=== PATIENT | female | born 1940 | race Caucasian/White ===

== ENCOUNTER → 2016-12-10 | Outpatient (CLI) | payer OTHER, MEDICARE ==
[~2016-12-10] MED LIST: DITROPAN; NAPROSYN500 MG PO; NORCO 5-325 TA1 EACH PO; SYNTHROID25 MCG PO
== END ==
LOC: ULTRA 07:41 → RAD 07:41
DX: Z12.31 Encounter for screening mammogram for malignant neoplasm of breast (principal); N28.9 Disorder of kidney and ureter, unspecified; M19.90 Unspecified osteoarthritis, unspecified site; M85.80 Other specified disorders of bone density and structure, unspecified site; Z86.19 Personal history of other infectious and parasitic diseases; Z85.528 Personal history of other malignant neoplasm of kidney

== ENCOUNTER → 2016-12-22 | Outpatient (CLI) | payer OTHER, MEDICARE | LOC: MRI 09:26 | DX: N28.89 Other specified disorders of kidney and ureter (principal) ==

== ENCOUNTER → 2017-12-21 | Outpatient (CLI) | payer OTHER, MEDICARE | LOC: HYPER 09:56 | DX: S80.12XA Contusion of left lower leg, initial encounter (principal); S80.11XA Contusion of right lower leg, initial encounter; I48.2 Chronic atrial fibrillation; M19.90 Unspecified osteoarthritis, unspecified site; M81.0 Age-related osteoporosis without current pathological fracture; Z79.01 Long term (current) use of anticoagulants; Z85.528 Personal history of other malignant neoplasm of kidney; Z90.710 Acquired absence of both cervix and uterus; Z87.891 Personal history of nicotine dependence; X58.XXXA Exposure to other specified factors, initial encounter; Y93.89 Activity, other specified; Y92.89 Other specified places as the place of occurrence of the external cause; Y99.8 Other external cause status ==

== ENCOUNTER → 2017-12-22 | Outpatient (CLI) | payer OTHER, MEDICARE | LOC: HYPER 07:10 | DX: S80.12XD Contusion of left lower leg, subsequent encounter (principal); S80.11XD Contusion of right lower leg, subsequent encounter; I48.2 Chronic atrial fibrillation; M19.90 Unspecified osteoarthritis, unspecified site; M81.0 Age-related osteoporosis without current pathological fracture; Z85.528 Personal history of other malignant neoplasm of kidney; Z79.01 Long term (current) use of anticoagulants; Z85.828 Personal history of other malignant neoplasm of skin; Z90.710 Acquired absence of both cervix and uterus; Z87.891 Personal history of nicotine dependence; X58.XXXD Exposure to other specified factors, subsequent encounter ==

== ENCOUNTER → 2017-12-24 | Outpatient (CLI) | payer OTHER, MEDICARE | LOC: HYPER 12:14 | DX: S80.11XD Contusion of right lower leg, subsequent encounter (principal); S80.12XD Contusion of left lower leg, subsequent encounter; I48.2 Chronic atrial fibrillation; M19.90 Unspecified osteoarthritis, unspecified site; M81.0 Age-related osteoporosis without current pathological fracture; Z87.891 Personal history of nicotine dependence; Z90.710 Acquired absence of both cervix and uterus; Z79.01 Long term (current) use of anticoagulants ==

== ENCOUNTER → 2018-01-05 | Outpatient (CLI) | payer OTHER, MEDICARE | LOC: HYPER 06:54 | DX: S81.812D Laceration without foreign body, left lower leg, subsequent encounter (principal); S81.811D Laceration without foreign body, right lower leg, subsequent encounter; I48.2 Chronic atrial fibrillation; M19.90 Unspecified osteoarthritis, unspecified site; M81.0 Age-related osteoporosis without current pathological fracture; Z85.53 Personal history of malignant neoplasm of renal pelvis; Z90.710 Acquired absence of both cervix and uterus; Z87.891 Personal history of nicotine dependence; Z79.01 Long term (current) use of anticoagulants; Z85.3 Personal history of malignant neoplasm of breast; X58.XXXD Exposure to other specified factors, subsequent encounter ==

== ENCOUNTER → 2018-01-19 | Outpatient (CLI) | payer OTHER, MEDICARE | LOC: HYPER 06:58 | DX: S81.832D Puncture wound without foreign body, left lower leg, subsequent encounter (principal); S81.831D Puncture wound without foreign body, right lower leg, subsequent encounter; I48.2 Chronic atrial fibrillation; M81.0 Age-related osteoporosis without current pathological fracture; M19.90 Unspecified osteoarthritis, unspecified site; Z85.53 Personal history of malignant neoplasm of renal pelvis; Z79.01 Long term (current) use of anticoagulants; Z90.710 Acquired absence of both cervix and uterus; Z87.891 Personal history of nicotine dependence; X58.XXXD Exposure to other specified factors, subsequent encounter ==

== ENCOUNTER → 2018-03-04 | Outpatient (CLI) | payer OTHER, MEDICARE | LOC: HYPER 06:57 | DX: S80.12XD Contusion of left lower leg, subsequent encounter (principal); I48.2 Chronic atrial fibrillation; B18.2 Chronic viral hepatitis C; M19.90 Unspecified osteoarthritis, unspecified site; M81.0 Age-related osteoporosis without current pathological fracture; Z85.53 Personal history of malignant neoplasm of renal pelvis; Z79.01 Long term (current) use of anticoagulants; Z85.828 Personal history of other malignant neoplasm of skin; Z90.710 Acquired absence of both cervix and uterus; Z87.891 Personal history of nicotine dependence; X58.XXXD Exposure to other specified factors, subsequent encounter ==

== ENCOUNTER 2018-04-14 17:58 | Inpatient (IN) | payer OTHER, MEDICARE ==
[~2018-04-14] VITALS: Ht 167.6 cm; Wt 70.6 kg
--- NOTE | ~2018-04-14 | HC ---
[facility] [place] [address] CONSULTATION Name: NILESH FONTANEZJANIE Brandon Room #: 429-P [facility] IN .R.#: [id number] Admission: 04/14/18 Attend Phys: Simone Arvizu MD Discharge: Date of : 44 Report #: [id number] THIS REPORT FOR: //name// CC: Roby Arvizu DATE OF SERVICE: 04/15/2018 INFECTIOUS DISEASE CONSULTATION REASON FOR CONSULTATION: I was asked to evaluate concerning right first toe paronychia with extensive soft tissue infection. HISTORY OF PRESENT ILLNESS: A 78-year-old with history of atrial fibrillation, on anticoagulation. She had undergone debridement of her right first toe due to recurrent ingrown toenail. Following this, she developed increased swelling and placed on cephalexin without improvement. Had local debridement done in the outpatient clinic over a week ago, placed on Levaquin with no improvement. Now hospitalized for further therapy. Has significant amount of pain in the toe. Temperature up to 100 degrees. No chills or sweats. No pain into the foot. No erythema into the foot or lower leg. She is a nonsmoker. No diabetes history. No claudication history. ALLERGIES: PARESTHESIAS WITH SULFA. MEDICATIONS: As noted on her MAR including Eliquis, aspirin, Lipitor, Tambocor, Synthroid, Lanoxin, multivitamin, calcium, vitamin C, Ultram, Synthroid. PAST MEDICAL HISTORY: Hypothyroidism, left breast cancer with lumpectomy, urinary stress incontinence, hepatitis C, hysterectomy, rectocele, bladder repair. FAMILY HISTORY: Noncontributory. SOCIAL HISTORY: Remote history of tobacco use. No significant alcohol intake. REVIEW OF SYSTEMS: GENERAL: Negative. HEENT: Negative. CARDIOVASCULAR: As above. PULMONARY: Negative. GASTROINTESTINAL: Negative. GENITOURINARY: Negative. SKIN: Negative other than the above. EXTREMITIES: As above. NEUROLOGIC: Negative. [facility] [address] [place] [address] CONSULTATION Name: DANIA FONTANEZ Room #: 429-P [facility] IN [facility]#: [id number] Admission: 04/14/18 Attend Phys: Simone Arvizu MD Discharge: Date of : 42 Report #: [id number] PSYCHIATRIC: Negative. LYMPHATIC: Negative. HEMATOLOGIC: As above. PHYSICAL EXAMINATION: VITAL SIGNS: Afebrile and hemodynamically stable. GENERAL: She is alert and cooperative and pleasant, in no acute distress. EYES: No conjunctival injection or scleral icterus. Mouth without mucositis or lesion. She does have dentures. NECK: Supple with no thyromegaly or mass. No palpable adenopathy. SKIN: Unremarkable other than what will be described on her extremity examination. LUNGS: Clear. HEART: Regular, without murmur. ABDOMEN: Soft and nontender. EXTREMITIES: Right great toe 2+ swelling with ecchymosis and eschar over the dorsum of her toe. Nail was swollen. Exquisitely tender. She did have capillary refill present. Pulses in the foot were normal. Sensation in the foot was normal. Range of motion was normal. NEUROLOGIC: Otherwise nonfocal with normal cranial nerves, deep tendon reflexes, and strength. PSYCHIATRIC: Mood normal. LABORATORY STUDIES: Blood cultures are negative to date. X-ray of the foot shows no evidence of osteomyelitis. Sodium 133, potassium 3.9, bicarbonate 27, creatinine 0.9. Liver function test normal. Hemoglobin 13.4, white count 6.0, platelet count 186,000. I do not have any culture results yet available. IMPRESSION: A 78-year-old with soft tissue infection and paronychia, right great toe. The patient is on Eliquis for anticoagulation. No evidence of peripheral vascular disease evident on examination. RECOMMENDATION: Would have surgical evaluation. Hold Eliquis. Timing of surgery will depend upon her anticoagulation. We will continue IV antibiotic therapy for now. Adjust pending cultures. <ELECTRONICALLY SIGNED> By: Byron Pruett MD 04/19/18 1345 1005 0000 Byron Pruett MD /nt
--- NOTE | ~2018-04-14 | O ---
[facility] [place] [address] OPERATIVE REPORT Name: ESTEEDANIA Brandon Room #: 429-P [facility] IN ..#: [id number] Admission: 04/14/18 Attend Phys: Simone Arvizu MD Discharge: 04/20/18 Date of : 42 Report #: [id number] THIS REPORT FOR: //name// CC: Roby Arvizu DATE OF SERVICE: 04/16/2018 PREOPERATIVE DIAGNOSIS: Right foot great toe osteomyelitis. POSTOPERATIVE DIAGNOSIS: Right foot great toe osteomyelitis. PROCEDURE: Right foot great toe amputation. SURGEON: Virgilio Light M.D. ANESTHESIA: General. ESTIMATED BLOOD LOSS: 10 mL. DRAINS: No drains. TOURNIQUET TIME: 20 minutes. DESCRIPTION OF PROCEDURE: The patient was brought to the operating room, where her right lower extremity was prepped and draped in a sterile manner. The extremity was elevated, exsanguinated and tourniquet placed to 300 mmHg. A fishmouth-type incision about the great toe distal phalanx was then made. This was dissected down through the soft tissue sharply to the bone, which was then sharply extracted from the skin flap and then completing the amputation, there was abundant purulent and bloody material, which was then irrigated copiously away from the wound. Once the wound was irrigated copiously, it was closed with 2-0 nylon suture in a simple stitch manner. Once complete, the wound was dressed with Xeroform, 4 x 4s, and a sterile soft compressive dressing was placed. Tourniquet was let down approximately 20 minutes. Toes were pink and warm, with good capillary refill. There were no complications from the procedure. The patient tolerated the procedure well and went to the recovery room without incident. <ELECTRONICALLY SIGNED> By: Virgilio Light MD 04/27/18 1235 1241 1259 Virgilio Light MD /nt
--- NOTE | ~2018-04-14 | HC ---
[facility] [place] [address] CONSULTATION Name: FONTANEZDANIA Room #: 429-P [facility] IN ..#: [id number] Admission: 04/14/18 Attend Phys: Simone Arvizu MD Discharge: Date of : 42 Report #: [id number] THIS REPORT FOR: //name// CC: Roby Arvizu DATE OF SERVICE: 04/15/2018 CHIEF COMPLAINT: Infected right great toe. HISTORY OF PRESENT ILLNESS: This is a 78-year-old female patient with a history of hypothyroidism as well as atrial fibrillation status post ablation who remains on Eliquis. She has had outpatient care of her right great toenail with resection about a month ago. She, however, developed infection and abscess, had an incision and drainage in the office, had some temporary improvement on oral Levaquin and then has had increasing swelling and drainage and pain. Was seen in the Wound Clinic yesterday and it was felt that inpatient hospitalization was warranted for orthopedic consultation and incision, drainage and debridement in an operative setting as well as intravenous antibiotic therapy. The patient reports that she is feeling better since admission. She is anxious to get on with the orthopedic procedure. PAST MEDICAL HISTORY: Positive for hypothyroidism, history of breast cancer on the left side with previous lumpectomy, has a history of stress incontinence, hepatitis C. PAST SURGICAL HISTORY: Hysterectomy, rectocele and previous bladder repair. SOCIAL HISTORY: This patient is a previous smoker, having smoked a half pack per day for 10 years. She quit greater than 1 year ago. No alcohol use. FAMILY HISTORY: Noncontributory. REVIEW OF SYSTEMS: CONSTITUTIONAL: The patient denies fever, chills, weight loss. NEUROLOGICAL: The patient denies focal weakness, numbness or tingling. EYES: The patient denies any visual changes, redness or drainage. ENT: The patient denies earache, nasal drainage or sore throat. CARDIOVASCULAR: The patient denies chest pain, palpitations or diaphoresis. PULMONARY: The patient denies cough or shortness of breath. GASTROINTESTINAL: The patient denies nausea, vomiting or diarrhea. ORTHOPEDIC: The patient complains of pain, swelling, drainage and some bleeding from her right great toe. MEDICATIONS: Include Eliquis, aspirin, Lipitor, Tambocor, Lanoxin, Centrum Silver, vitamin C, Ultram, MiraLax, Synthroid and Ditropan. [address] [address] CONSULTATION Name: NILESH FONTANEZJANIE Brandon Room #: 429-P [facility] IN [facility]#: [id number] Admission: 04/14/18 Attend Phys: Simone Arvizu MD Discharge: Date of : 42 Report #: [id number] PHYSICAL EXAMINATION: VITAL SIGNS: At this time include temperature 36.7, pulse 59, respiration 16, blood pressure 132/69. GENERAL: This is a well-developed, well-nourished female patient who appears to be in no distress. HEENT: Head is normocephalic. Nose and throat are clear. NECK: Supple. LUNGS: Clear. HEART: Regular rhythm without murmur. ABDOMEN: Soft. Bowel sounds present. EXTREMITIES: Demonstrate palpable distal pulses. She has significant eschar and what appears to be some dried hematoma involving the dorsal aspect of the right great toe nailbed. There is significant swelling and erythema as well suggestive of underlying abscess. NEUROLOGIC: The patient is alert, oriented and appropriate. X-ray evaluation of the right foot demonstrates soft tissue swelling without acute fracture or dislocation and nothing to suggest osteomyelitis. LABORATORY DATA: White blood cell count 6000, hemoglobin 13.4, hematocrit 38.9, sodium 133, potassium 3.9, chloride 99, CO2 27, BUN 17, creatinine 0.9, glucose of 105, albumin 3.9, total protein is 8.0. CLINICAL IMPRESSION: 1. Cellulitis/abscess of the right great toe with possible retained hematoma. 2. Atrial fibrillation with anticoagulation. 3. Hypertension. 4. Hypothyroidism. RECOMMENDATIONS: At this point in time, the patient has been seen by Infectious Disease. She has been started on intravenous antibiotic therapy pending culture results. Orthopedic Surgery has been consulted and plans for operative incision and debridement for tomorrow have been set. We will recommend simple Betadine "paint" to the affected area for now. Additional decision making for wound care will be forthcoming following her operative procedure. I appreciate being asked to see her in consultation. <ELECTRONICALLY SIGNED> By: Femi Regalado MD 04/16/18 0738 1314 0203 Femi Regalado MD /nt
--- NOTE | ~2018-04-14 | PATH ---
[facility] [address] [place] [address] PATHOLOGY RPT PROCEDURE Name: NILESH DELUNAJANIE Brandon Room #: 429-P [facility] IN M.R.#: [id number] Admission: 04/14/18 Date of : 44 Discharge: 04/20/18 Report #: [id number] Path Case #: [id number] [facility] Accession Number: [id number] . 01 Material submitted: . RIGHT GREAT TOE . 01 Clinician provided ICD-10: L03.031 . 01 Clinical history: . Cellulitis. . 02 Diagnosis: Toe, right great toe, amputation: - Marked acute inflammation associated with ulceration. - Underlying bone showing mild chronic inflammation along with remodeling. - Skin margin unremarkable and viable. . (IUV:access coordinator; 04/19/2018) MBR/04/20/2018 . 02 Electronically signed: . Hailee Perez MD, Pathologist NPI- [id number] . 01 Gross description: . Received in formalin labeled "Dania Deluna, right great toe" is a toe amputation specimen which measures 3.6 x 2.8 x 2.5 cm. The skin and soft tissue resection margin is smooth and consistent with a surgical margin, and the bone resection margin consists of a convex cartilaginous covered disarticulation. The margin is inked black. The skin surface displays a bergeron-henry thickened toenail measuring 1.8 x 1.6 x 0.2 cm. Adjacent to the nail is a bergeron-red ulcerated lesion measuring 2.3 x 1.7 x 0.1 cm. The lesion measures 0.2 cm to the closest skin margin and 0.7 cm to the bone margin. The specimen is sectioned to reveal the ulcerative lesion has a greatest third dimension of 1.4 cm, and abuts the underlying bone. Also present within the container is a bergeron-white ellipse of skin and underlying soft tissue measuring 3.3 x 1.0 x 0.7 cm. The skin surface is bergeron-white and grossly unremarkable without lesions present. A medical customer service representative cross-section of the toe is submitted in cassettes A1-A2 following decalcification. Sewage Screen Operator sections of separate skin are submitted in cassette A3. ([facility]; 04/18/2018) SYC/SYC . 02 Pathologist provided ICD-10: L97.511 [place] [address] PATHOLOGY RPT PROCEDURE Name: DANIA DELUNA A Room #: 429-P [facility] IN M.R.#: [id number] Admission: 04/14/18 Date of : 44 Discharge: 04/20/18 Report #: [id number] Path Case #: [id number] . 02 CPT . 283587, [id number] Specimen Comment: A courtesy copy of this report has been sent to Specimen Comment: [phone], , . Specimen Comment: Report sent to ,DR SIFUENTES / DR VIZCAINO Specimen Comment: A duplicate report has been generated due to demographic updates. Performed at: [address] [facility], [place] [id number] MD George Vang MD Phone: [phone] Performed at: [address] [facility] [id number] MD Hailee Perez MD Phone: [phone]
[~2018-04-14 17:58] MED LIST changes: -ASPIR 8181 MG PO; -CALCIUM + VITA1 EACH PO; -CENTRUM SILVER1 EAC5 PO; -DAPTOMYCIN500 MG IV; -DIGOXIN125 MCG PO; -ELIQUIS5 MG PO; -FLECAINIDE ACET50 M1 PO; -LIPITOR 20 MG T20 M1 PO; -MIRALAX17 GM PO; -SYNTHROID88 MCG PO; -TRAMADOL 50 MG50 MG PO; -VITAMIN C500 M1 PO; -XANAX 0.25 MG0.25 MG PO
[2018-04-14 18:20] VITALS: BP 181/69
[2018-04-14] MEDS ORDERED: ELIQUIS5 MG PO (19:42)
[2018-04-14] MEDS ORDERED: ASPIR 8181 MG PO (19:44)
[2018-04-14 19:45] VITALS: BP 184/78
[2018-04-14] MEDS ORDERED: FLECAINIDE ACET50 M1 PO (19:45)
[2018-04-14] MEDS ORDERED: LIPITOR 20 MG T20 M1 PO (19:45)
[2018-04-14] MEDS ORDERED: SYNTHROID88 MCG PO (19:46)
[2018-04-14] MEDS ORDERED: DIGOXIN125 MCG PO (19:48)
[2018-04-14] MEDS ORDERED: CENTRUM SILVER1 EAC5 PO (19:49)
[2018-04-14] MEDS ORDERED: CALCIUM + VITA1 EACH PO (19:50)
[2018-04-14] MEDS ORDERED: VITAMIN C500 M1 PO (19:51)
[2018-04-14] MEDS ORDERED: TRAMADOL 50 MG50 MG PO (19:52)
[2018-04-14] MEDS ORDERED: MIRALAX17 GM PO (19:53)
[2018-04-14 19:54] LABS: BASOPHILS 0.7 % (0.0-2.0); EOSINOPHILS 1.5 % (0.0-3.0); HEMATOCRIT 38.9 % (37.0-47.0); HEMOGLOBIN 13.4 gm/dL (12.0-15.0); LYMPHOCYTES 24.1 % (24.0-44.0); MCH 31.9 pg (26.0-34.0); MCHC 34.5 g/dL (28.0-37.0); MCV 92.6 fL (80.0-100.0); MONOCYTES 7.6 % (1.0-8.0); PLATELET COUNT 186 thou/uL (150-400); POLYS 66.1 % (36.0-66.0); RDW 12.8 % (10.5-14.5)
[2018-04-14 20:09] LABS: ALBUMIN 3.9 g/dL (3.4-5.0); CALCIUM 9.7 mg/dL (8.5-10.1); CREATININE 0.9 mg/dL (0.6-1.0); POTASSIUM 3.9 mmol/L (3.5-5.1); TOTAL BILIRUBIN 0.5 mg/dL (<0.1-1.0)
[2018-04-15 04:28] VITALS: BP 112/58
[2018-04-15 08:25] VITALS: BP 156/106
[2018-04-15 08:26] VITALS: BP 132/69
[2018-04-15 12:14] VITALS: BP 132/69
[2018-04-15 14:04] VITALS: BP 144/57
[2018-04-15 19:45] VITALS: BP 151/63
[2018-04-16] VITALS (7 sets, daily range): BP systolic 134–190; BP diastolic 75–100
[2018-04-16 06:22] LABS: ABSOLUTE NEUTROPHILS 3.4 thou/uL (1.4-8.2); BASOPHILS 0.8 % (0.0-2.0); EOSINOPHILS 3.8 % (0.0-3.0); HEMATOCRIT 39.5 % (37.0-47.0); HEMOGLOBIN 13.8 gm/dL (12.0-15.0); LYMPHOCYTES 22.1 % (24.0-44.0); MCH 32.6 pg (26.0-34.0); MCHC 34.9 g/dL (28.0-37.0); MCV 93.5 fL (80.0-100.0); MONOCYTES 10.3 % (1.0-8.0); PLATELET COUNT 179 thou/uL (150-400); RBC 4.23 mil/uL (4.20-5.00); RDW 12.9 % (10.5-14.5); WBC 5.4 thou/uL (4.0-11.0)
[2018-04-16 06:27] LABS: CALCIUM 9.6 mg/dL (8.5-10.1); CREATININE 1.1 mg/dL (0.6-1.0); POTASSIUM 4.7 mmol/L (3.5-5.1)
[2018-04-17 05:30] VITALS: BP 120/73
[2018-04-17 05:56] LABS: ABSOLUTE NEUTROPHILS 6.6 thou/uL (1.4-8.2); BASOPHILS 0.4 % (0.0-2.0); EOSINOPHILS 2.5 % (0.0-3.0); HEMATOCRIT 40.8 % (37.0-47.0); HEMOGLOBIN 14.2 gm/dL (12.0-15.0); MCH 32.1 pg (26.0-34.0); MCHC 34.9 g/dL (28.0-37.0); MCV 92.2 fL (80.0-100.0); MONOCYTES 5.8 % (1.0-8.0); PLATELET COUNT 218 thou/uL (150-400); POLYS 75.3 % (36.0-66.0); RBC 4.42 mil/uL (4.20-5.00); RDW 12.9 % (10.5-14.5); WBC 8.8 thou/uL (4.0-11.0)
[2018-04-17 06:07] LABS: CALCIUM 9.3 mg/dL (8.5-10.1); CREATININE 0.9 mg/dL (0.6-1.0); POTASSIUM 4.3 mmol/L (3.5-5.1)
[2018-04-17 08:09] VITALS: BP 124/71
[2018-04-18 04:33] VITALS: BP 154/79
[2018-04-18 06:27] LABS: ABSOLUTE NEUTROPHILS 4.1 thou/uL (1.4-8.2); BASOPHILS 0.5 % (0.0-2.0); EOSINOPHILS 3.9 % (0.0-3.0); HEMATOCRIT 35.5 % (37.0-47.0); HEMOGLOBIN 12.6 gm/dL (12.0-15.0); LYMPHOCYTES 18.8 % (24.0-44.0); MCH 32.7 pg (26.0-34.0); MCHC 35.5 g/dL (28.0-37.0); MCV 91.9 fL (80.0-100.0); MONOCYTES 9.2 % (1.0-8.0); PLATELET COUNT 171 thou/uL (150-400); POLYS 67.6 % (36.0-66.0); RBC 3.87 mil/uL (4.20-5.00); RDW 12.7 % (10.5-14.5); WBC 6.1 thou/uL (4.0-11.0)
[2018-04-18 06:43] LABS: CALCIUM 8.9 mg/dL (8.5-10.1); POTASSIUM 3.7 mmol/L (3.5-5.1)
[2018-04-18 20:00] VITALS: BP 161/79
[2018-04-19 04:00] VITALS: BP 149/69
[2018-04-19 04:29] LABS: ABSOLUTE NEUTROPHILS 4.3 thou/uL (1.4-8.2); BASOPHILS 0.8 % (0.0-2.0); EOSINOPHILS 4.2 % (0.0-3.0); HEMATOCRIT 35.8 % (37.0-47.0); HEMOGLOBIN 12.3 gm/dL (12.0-15.0); LYMPHOCYTES 23.2 % (24.0-44.0); MCH 31.9 pg (26.0-34.0); MCHC 34.4 g/dL (28.0-37.0); MCV 92.8 fL (80.0-100.0); MONOCYTES 8.8 % (1.0-8.0); PLATELET COUNT 170 thou/uL (150-400); RBC 3.85 mil/uL (4.20-5.00); RDW 12.8 % (10.5-14.5); WBC 6.8 thou/uL (4.0-11.0)
[2018-04-19 04:44] LABS: CALCIUM 9.2 mg/dL (8.5-10.1); POTASSIUM 4.2 mmol/L (3.5-5.1)
[2018-04-19 08:09] VITALS: BP 159/81
[2018-04-19 15:42] VITALS: BP 159/81
[2018-04-19 16:43] VITALS: BP 171/96
[2018-04-19] MEDS ORDERED: NORCO 5-325 TA1 EACH PO (17:17)
[2018-04-19 20:00] VITALS: BP 191/96
[2018-04-19 21:00] VITALS: BP 167/82
[2018-04-20] VITALS (8 sets, daily range): BP systolic 128–177; BP diastolic 72–97
[2018-04-21] MEDS ORDERED: DAPTOMYCIN500 MG IV (11:43)
[2018-04-22] MEDS ORDERED: XANAX 0.25 MG0.25 MG PO (14:55)
== END 2018-04-20 18:15 | disposition home health service (06) | DRG 853 ==
LOC: 4E 17:58
PROVIDERS: Hospitalist; Orthopaedic Surgery Foot and Ankle Surgery
PROC: 0Y6P0Z3 Detachment at Right 1st Toe, Low, Open Approach (ICD-10-PCS; principal; 2018-04-16)
DX: A41.9 Sepsis, unspecified organism (principal); E43 Unspecified severe protein-calorie malnutrition; M86.8X8 Other osteomyelitis, other site; L02.611 Cutaneous abscess of right foot; L03.031 Cellulitis of right toe; E03.9 Hypothyroidism, unspecified; M19.90 Unspecified osteoarthritis, unspecified site; N32.81 Overactive bladder; I48.91 Unspecified atrial fibrillation; I10 Essential (primary) hypertension; Z85.3 Personal history of malignant neoplasm of breast; Z90.710 Acquired absence of both cervix and uterus; Z87.891 Personal history of nicotine dependence; Z88.2 Allergy status to sulfonamides; Z79.01 Long term (current) use of anticoagulants; Z86.19 Personal history of other infectious and parasitic diseases; Z88.8 Allergy status to other drugs, medicaments and biological substances
CPT/HCPCS: 10783; 27000; 50010; 50101; 50386; 50951; 56525; 56527; 57091; 62110; 62900; 70005

== ENCOUNTER → 2018-04-14 | Outpatient (CLI) | payer OTHER, MEDICARE ==
[~2018-04-14] MED LIST changes: +ASPIR 8181 MG PO; +CALCIUM + VITA1 EACH PO; +CENTRUM SILVER1 EAC5 PO; +DAPTOMYCIN500 MG IV; +DIGOXIN125 MCG PO; +ELIQUIS5 MG PO; +FLECAINIDE ACET50 M1 PO; +LIPITOR 20 MG T20 M1 PO; +MIRALAX17 GM PO; +SYNTHROID88 MCG PO; +TRAMADOL 50 MG50 MG PO; +VITAMIN C500 M1 PO; +XANAX 0.25 MG0.25 MG PO
== END ==
LOC: HYPER 09:41
DX: T81.49XA Infection following a procedure, other surgical site, initial encounter (principal); B18.2 Chronic viral hepatitis C; I48.2 Chronic atrial fibrillation; M81.0 Age-related osteoporosis without current pathological fracture; Z85.528 Personal history of other malignant neoplasm of kidney; Z85.3 Personal history of malignant neoplasm of breast; Z85.828 Personal history of other malignant neoplasm of skin; Z87.891 Personal history of nicotine dependence; Z79.01 Long term (current) use of anticoagulants; Z90.710 Acquired absence of both cervix and uterus; Y92.89 Other specified places as the place of occurrence of the external cause; Y83.8 Other surgical procedures as the cause of abnormal reaction of the patient, or of later complication, without mention of misadventure at the time of the procedure

== ENCOUNTER → 2018-04-21 | Outpatient (CLI) | payer OTHER, MEDICARE ==
[~2018-04-21] MED LIST changes: +ASPIR 8181 MG PO; +CALCIUM + VITA1 EACH PO; +CENTRUM SILVER1 EAC5 PO; +DAPTOMYCIN500 MG IV; +DIGOXIN125 MCG PO; +ELIQUIS5 MG PO; +FLECAINIDE ACET50 M1 PO; +LIPITOR 20 MG T20 M1 PO; +MIRALAX17 GM PO; +SYNTHROID88 MCG PO; +TRAMADOL 50 MG50 MG PO; +VITAMIN C500 M1 PO; +XANAX 0.25 MG0.25 MG PO
[2018-04-21 11:23] LABS: HEMATOCRIT 37.4 % (37.0-47.0); HEMOGLOBIN 13.2 gm/dL (12.0-15.0); MCH 32.9 pg (26.0-34.0); MCHC 35.2 g/dL (28.0-37.0); MCV 93.5 fL (80.0-100.0); WBC 8.3 thou/uL (4.0-11.0)
[2018-04-21 11:38] LABS: ALBUMIN 3.6 g/dL (3.4-5.0); CALCIUM 9.2 mg/dL (8.5-10.1); TOTAL BILIRUBIN 0.4 mg/dL (<0.1-1.0); TOTAL PROTEIN 7.7 g/dL (6.4-8.2)
[2018-04-21 11:50] VITALS: BP 132/73
[2018-04-21 12:15] VITALS: BP 132/73
== END ==
LOC: OPONC 06:27
PROVIDERS: Specialist
DX: M86.171 Other acute osteomyelitis, right ankle and foot (principal)
CPT/HCPCS: 95000

== ENCOUNTER → 2018-04-22 | Outpatient (CLI) | payer OTHER, MEDICARE ==
[2018-04-22 10:15] VITALS: BP 127/74
== END ==
LOC: OPONC 07:41
DX: M86.171 Other acute osteomyelitis, right ankle and foot (principal)
CPT/HCPCS: 95000

== ENCOUNTER → 2018-04-23 | Outpatient (CLI) | payer OTHER, MEDICARE ==
[2018-04-23 16:00] VITALS: BP 127/58
== END ==
LOC: OPONC 00:31
DX: M86.171 Other acute osteomyelitis, right ankle and foot (principal)
CPT/HCPCS: 95000

== ENCOUNTER → 2018-04-24 | Outpatient (CLI) | payer OTHER, MEDICARE | LOC: OPONC 00:20 | DX: M86.171 Other acute osteomyelitis, right ankle and foot (principal) | CPT/HCPCS: 95000 ==

== ENCOUNTER → 2018-04-25 | Outpatient (CLI) | payer OTHER, MEDICARE | LOC: OPONC 00:14 | DX: M86.171 Other acute osteomyelitis, right ankle and foot (principal) | CPT/HCPCS: 95000 ==

== ENCOUNTER → 2018-04-26 | Outpatient (CLI) | payer OTHER, MEDICARE ==
[~2018-04-26] MED LIST changes: +KEFLEX500 M1 PO
[2018-04-26 13:25] VITALS: BP 139/70
== END ==
LOC: OPONC 00:20
DX: M86.171 Other acute osteomyelitis, right ankle and foot (principal)
CPT/HCPCS: 95000

== ENCOUNTER → 2018-04-27 | Outpatient (CLI) | payer OTHER, MEDICARE ==
[2018-04-27 15:18] VITALS: BP 139/74
== END ==
LOC: HYPER 00:20
DX: M86.171 Other acute osteomyelitis, right ankle and foot (principal); T81.49XD Infection following a procedure, other surgical site, subsequent encounter; B18.2 Chronic viral hepatitis C; I48.2 Chronic atrial fibrillation; M81.0 Age-related osteoporosis without current pathological fracture; M19.90 Unspecified osteoarthritis, unspecified site; Z85.3 Personal history of malignant neoplasm of breast; Z79.01 Long term (current) use of anticoagulants; Z87.891 Personal history of nicotine dependence; Z90.710 Acquired absence of both cervix and uterus; Z85.528 Personal history of other malignant neoplasm of kidney; Y83.8 Other surgical procedures as the cause of abnormal reaction of the patient, or of later complication, without mention of misadventure at the time of the procedure
CPT/HCPCS: 95000

== ENCOUNTER → 2018-04-28 | Outpatient (CLI) | payer OTHER, MEDICARE ==
[~2018-04-28] MED LIST changes: -KEFLEX500 M1 PO
[2018-04-28 11:45] VITALS: BP 125/69
[2018-04-28 12:03] LABS: HEMATOCRIT 35.6 % (37.0-47.0); HEMOGLOBIN 12.4 gm/dL (12.0-15.0); MCH 32.4 pg (26.0-34.0); MCHC 34.8 g/dL (28.0-37.0); MCV 93.3 fL (80.0-100.0); RBC 3.82 mil/uL (4.20-5.00); WBC 6.5 thou/uL (4.0-11.0)
[2018-04-28 12:35] LABS: ALBUMIN 3.5 g/dL (3.4-5.0); CALCIUM 9.1 mg/dL (8.5-10.1); CREATININE 0.9 mg/dL (0.6-1.0); POTASSIUM 3.9 mmol/L (3.5-5.1); TOTAL BILIRUBIN 0.4 mg/dL (<0.1-1.0); TOTAL PROTEIN 7.7 g/dL (6.4-8.2)
== END ==
LOC: OPONC 00:54
PROVIDERS: Specialist
DX: M86.171 Other acute osteomyelitis, right ankle and foot (principal)
CPT/HCPCS: 95000

== ENCOUNTER → 2018-04-29 | Outpatient (CLI) | payer OTHER, MEDICARE ==
[2018-04-29 11:08] VITALS: BP 134/77
== END ==
LOC: OPONC 06:21
DX: M86.171 Other acute osteomyelitis, right ankle and foot (principal)
CPT/HCPCS: 95000

== ENCOUNTER → 2018-04-30 | Outpatient (CLI) | payer OTHER, MEDICARE ==
[2018-04-30 11:44] VITALS: BP 110/53
== END ==
LOC: OPONC 00:14
DX: M86.171 Other acute osteomyelitis, right ankle and foot (principal)
CPT/HCPCS: 95000

== ENCOUNTER → 2018-05-01 | Outpatient (CLI) | payer OTHER, MEDICARE | LOC: OPONC 09:00 | DX: M86.171 Other acute osteomyelitis, right ankle and foot (principal) | CPT/HCPCS: 95000 ==

== ENCOUNTER → 2018-05-02 | Outpatient (CLI) | payer OTHER, MEDICARE | LOC: OPONC 08:08 | DX: M86.171 Other acute osteomyelitis, right ankle and foot (principal) | CPT/HCPCS: 95000 ==

== ENCOUNTER → 2018-05-03 | Outpatient (CLI) | payer OTHER, MEDICARE ==
[2018-05-03 13:44] VITALS: BP 112/61
== END ==
LOC: OPONC 00:59
DX: M86.171 Other acute osteomyelitis, right ankle and foot (principal)
CPT/HCPCS: 95000

== ENCOUNTER → 2018-05-04 | Outpatient (CLI) | payer OTHER, MEDICARE ==
[~2018-05-04] MED LIST changes: +KEFLEX500 M1 PO
[2018-05-04 11:30] VITALS: BP 140/72
== END ==
LOC: OPONC 00:18
DX: M86.171 Other acute osteomyelitis, right ankle and foot (principal)
CPT/HCPCS: 95000

== ENCOUNTER → 2018-05-05 | Outpatient (CLI) | payer OTHER, MEDICARE ==
[2018-05-05 09:45] VITALS: BP 125/68
[2018-05-05 10:12] LABS: HEMATOCRIT 37.6 % (37.0-47.0); HEMOGLOBIN 13.1 gm/dL (12.0-15.0); MCH 32.8 pg (26.0-34.0); MCHC 34.9 g/dL (28.0-37.0); MCV 93.9 fL (80.0-100.0); RBC 4.01 mil/uL (4.20-5.00); WBC 6.6 thou/uL (4.0-11.0)
[2018-05-05 10:26] LABS: ALBUMIN 3.9 g/dL (3.4-5.0); CALCIUM 9.6 mg/dL (8.5-10.1); CREATININE 0.9 mg/dL (0.6-1.0); POTASSIUM 4.3 mmol/L (3.5-5.1); TOTAL BILIRUBIN 0.5 mg/dL (<0.1-1.0); TOTAL PROTEIN 7.7 g/dL (6.4-8.2)
== END ==
LOC: OPONC 00:18
PROVIDERS: Specialist
DX: M86.171 Other acute osteomyelitis, right ankle and foot (principal)
CPT/HCPCS: 95000

== ENCOUNTER → 2018-05-06 | Outpatient (CLI) | payer OTHER, MEDICARE ==
[2018-05-06 10:00] VITALS: BP 146/82
== END ==
LOC: OPONC 02:36
DX: M86.171 Other acute osteomyelitis, right ankle and foot (principal)
CPT/HCPCS: 95000

== ENCOUNTER → 2018-05-12 | Outpatient (CLI) | payer OTHER, MEDICARE | LOC: HYPER 06:45 | DX: T81.49XD Infection following a procedure, other surgical site, subsequent encounter (principal); B18.2 Chronic viral hepatitis C; I48.2 Chronic atrial fibrillation; I48.91 Unspecified atrial fibrillation; M81.0 Age-related osteoporosis without current pathological fracture; M19.90 Unspecified osteoarthritis, unspecified site; Z85.528 Personal history of other malignant neoplasm of kidney; Z85.3 Personal history of malignant neoplasm of breast; Z79.01 Long term (current) use of anticoagulants; Z87.891 Personal history of nicotine dependence; Z90.710 Acquired absence of both cervix and uterus; Y83.8 Other surgical procedures as the cause of abnormal reaction of the patient, or of later complication, without mention of misadventure at the time of the procedure ==

== ENCOUNTER → 2018-05-17 | Outpatient (CLI) | payer OTHER, MEDICARE ==
[2018-05-17 09:00] VITALS: BP 115/63
[2018-05-17 09:45] LABS: HEMATOCRIT 38.1 % (37.0-47.0); HEMOGLOBIN 12.9 gm/dL (12.0-15.0); MCV 94.1 fL (80.0-100.0); RBC 4.04 mil/uL (4.20-5.00); RDW 13.1 % (10.5-14.5); WBC 5.9 thou/uL (4.0-11.0)
[2018-05-17 09:50] LABS: CALCIUM 9.1 mg/dL (8.5-10.1); CREATININE 0.9 mg/dL (0.6-1.0); POTASSIUM 4.2 mmol/L (3.5-5.1)
== END ==
LOC: OPONC 00:33
PROVIDERS: Specialist
DX: M86.672 Other chronic osteomyelitis, left ankle and foot (principal); I48.91 Unspecified atrial fibrillation; Z89.422 Acquired absence of other left toe(s)
CPT/HCPCS: 91016

== ENCOUNTER → 2019-03-18 | Outpatient (CLI) | payer OTHER, MEDICARE ==
[~2019-03-18] MED LIST changes: +COQ-10100 MG PO; +PROBIOTIC1 EAC1 PO; +SYNTHROID88 MC1 PO; -SYNTHROID88 MCG PO
== END ==
LOC: RAD 14:26
DX: Z12.31 Encounter for screening mammogram for malignant neoplasm of breast (principal)

== ENCOUNTER → 2019-03-28 | Outpatient (CLI) | payer OTHER, MEDICARE ==
--- NOTE | 2019-03-28 11:47 | P ---
[facility] [place] [address] PROCEDURE REPORT Name: DANIA FONTANEZ Room #: REG [facility]#: [id number] Admission: 03/28/19 ������������������ Attend Phys: Willie Martinez Discharge: ������������������ Date of : 42 Report #: [id number] THIS REPORT FOR: //name// CC: Willie Ramos DATE OF SERVICE: 03/28/2019 PROCEDURE PERFORMED: Colonoscopy with polypectomy and bleeding control. HISTORY OF PRESENT ILLNESS: The patient is a 79-year-old female with a history of colon polyps, here for routine 5-year followup. Denies any symptoms. No family history of colon cancer. The patient is on Eliquis for history of atrial fibrillation. She has been holding this for the last 5 days. PROCEDURE: The risks and benefits of the procedure were explained to the patient, those risks including but not limited to bleeding, perforation and the risk of sedation. She understood these risks and gave informed consent. Sedation was given using propofol per anesthesia. Next, a digital rectal exam was initially performed, which was normal. Next, using a standard Olympus colonoscope, the scope was placed in the patient's anus and advanced under direct vision to the cecum. The overall prep was excellent. The cecum and ileocecal valve were normal in appearance. In the ascending colon 2 partially pedunculated polyps were noted, both were 6-8 mm in size, both removed by snare cautery. After one was removed, there was a small amount of bleeding. A single endoclip was placed. No further bleeding was noted. The transverse, descending and sigmoid colon were normal. The rectal mucosa was normal. On retroflexion, no abnormalities were noted. The scope was then withdrawn and the procedure terminated. The patient tolerated the procedure well. IMPRESSION: 1. Two colonic polyps. 2. Otherwise, normal colonoscopy. RECOMMENDATIONS: 1. Await biopsy results. 2. Repeat colonoscopy in 5 years. Thank you for allowing me to participate in her care. ��������������������������������������������� <ELECTRONICALLY SIGNED> ���������������������������������������� By: Willie Aguirre MD ��������������������������������������������� 03/28/19 1147 0950 1012 Willie Aguirre MD /nt
--- NOTE | 2019-03-29 16:06 | PATH ---
[facility] [address] [place] [address] PATHOLOGY RPT PROCEDURE Name: DANIA DELUNA Roma Room #: REG [facility]#: [id number] ������������������ Admission: 03/28/19 ������������������ Date of : 42 Discharge: Report #: [id number] Path Case #: [id number] [facility] Accession Number: [id number] . 01 Material submitted: . colon - POLYP AT ASCENDING COLON X2. Modifiers: ascending . 01 Clinical history: . Pre-OP DX: Hx polyps Post-OP DX: Colon polyps . 02 Diagnosis: Polyps x2, ascending colon, endoscopic biopsy: - Tubular adenoma x2, 0.8 cm and 0.5 cm. - Negative for high-grade dysplasia. - Focal adenomatous changes present at inked/cauterized margin. (Please see comment). (IUV:malik; 03/29/2019) MBR 03/29/2019 1459 Local . 02 Comment: Please correlate with the intraoperative/endoscopic findings for a complete removal of these polyps. (IUV:junior database administrator; 03/29/2019) . 02 Electronically signed: . Hailee Perez MD, Pathologist NPI- [id number] . 01 Gross description: . Received in formalin labeled "Dania Deluna, polyp at ascending colon X2," is a 0.8 x 0.5 x 0.4 cm polypoid piece of bergeron soft tissue. The presumed margin is inked and the tissue is sectioned perpendicular to the margin and submitted entirely in cassette A1. Additionally received in the same container is a 0.5 x 0.4 x 0.4 cm polypoid piece of bergeron soft tissue. The presumed margin is inked and the specimen is sectioned perpendicular to the margin and entirely submitted in cassette A2. (TSD; 03/28/2019) TOB/TOB 03/28/2019 1751 Local . 02 Pathologist provided ICD-10: D12.2 . 02 CPT . 972421 Specimen Comment: A courtesy copy of this report has been sent to Specimen Comment: [phone], [place] [address] PATHOLOGY RPT PROCEDURE Name: DANIA DELUNA Room #: REG GE[facility]GI [facility]#: [id number] ������������������ Admission: 03/28/19 ������������������ Date of : 44 Discharge: Report #: [id number] Path Case #: [id number] Specimen Comment: Report sent to / DR VIZCAINO Performed at: [address] [facility], [place], [place] [id number] MD George Vang MD Phone: [phone] Performed at: [address] [id number] MD Hailee Perez MD Phone: [phone]
== END | disposition home or self-care (01) ==
LOC: GI 07:44
DX: Z12.11 Encounter for screening for malignant neoplasm of colon (principal); Z86.010 Personal history of colon polyps; D12.2 Benign neoplasm of ascending colon; I48.91 Unspecified atrial fibrillation; Z98.890 Other specified postprocedural states; Z88.2 Allergy status to sulfonamides; Z88.8 Allergy status to other drugs, medicaments and biological substances; Z79.82 Long term (current) use of aspirin; Z79.01 Long term (current) use of anticoagulants; Z79.899 Other long term (current) drug therapy
CPT/HCPCS: 62110; 62900

== ENCOUNTER → 2020-06-11 | Outpatient (CLI) | payer OTHER, MEDICARE | LOC: ULTRA 09:27 | PROVIDERS: ATTEND Family Medicine | DX: K76.0 Fatty (change of) liver, not elsewhere classified (principal); N28.89 Other specified disorders of kidney and ureter; N28.1 Cyst of kidney, acquired; Z86.19 Personal history of other infectious and parasitic diseases; Z85.528 Personal history of other malignant neoplasm of kidney ==

== ENCOUNTER → 2020-07-31 | Outpatient (CLI) | payer OTHER, MEDICARE | LOC: BC 08:55 | PROVIDERS: ATTEND Family Medicine | DX: Z12.31 Encounter for screening mammogram for malignant neoplasm of breast (principal) ==